=== PATIENT | female | born 1950 | race Caucasian/White ===

== ENCOUNTER → 2022-08-24 08:01 | Outpatient (BNVA) | payer MEDICARE, SELFPAY | PROVIDERS: Visit Provider Internal Medicine | DX: E04.2 Nontoxic multinodular goiter (principal) | CPT/HCPCS: 99202 ==

== ENCOUNTER 2022-08-24 09:24 | Outpatient (REF) | payer MEDICARE, SELFPAY ==
[2022-08-24 11:37] LABS: Free T4 (Free Thyroxine) 1.07 ng/dL (0.71-1.85)
== END 2022-08-24 09:25 | disposition home or self-care (01) ==
LOC: HO.10HDL 09:24
PROVIDERS: Visit Provider Internal Medicine
DX: E04.2 Nontoxic multinodular goiter (principal)
CPT/HCPCS: 36415; 84439; 84443

== ENCOUNTER 2022-10-01 07:57 | Outpatient (REF) | payer MEDICARE, SELFPAY ==
--- NOTE | 2022-10-01 08:51 | PM.OP ---
Brief Operative Note Date of Service: 10/01/22 Pre-op diagnosis: Multinodular Thyroid Procedure: This is doctor Beatrice Valdes. This is an ultrasound-guided fine-needle aspiration report. Indication: Multinodular Thyroid Porcedure: Procedure was explained to the patient. Alternatives, the risk and benefits were discussed. Written consent was obtained. A time-out was also obtained. After sterile preparation, 1 ml of 1% lidocaine solution was applied subcutaneously for anesthetic effect. Then Fine-needle aspiration of a left upper pole 1.1 cm thyroid nodule was performed using direct ultrasound guidance to confirm accurate needle placement. Four aspirations were made using 27 gauge needles. An additional two aspirations were made using 25 guage needles. Samples were submitted for cytology. One pass was dedicated for [employer] sequencing sewing demonstrator testing. Our attention was then turned to the left mid pole. Fine-needle aspiration of a left mid pole 2.1 cm thyroid nodule was performed using direct ultrasound guidance to confirm accurate needle placement. Four aspirations were made using 27 gauge needles. Samples were submitted for cytology. One pass was dedicated for [employer] sequencing sewing demonstrator testing. The patient tolerated the procedure well. Aftercare instructions were provided. Impression: Uncomplicated fine needle aspiration biopsy of a left upper pole 1.1 cm thyroid nodule and a left mid pole 2.1 cm thyroid nodule under ultrasound guidance. Surgeon: Beatrice Valdes, DO Was an [employer] Teacher used for this Procedure?: No Estimated blood loss (mL): 0
[2022-10-01] MEDS: Lidocaine HCl 1 % MPF 5 ML VIAL SUBCUT (09:56)
== END 2022-10-01 07:58 | disposition home or self-care (01) ==
LOC: HO.US 07:57
PROVIDERS: Visit Provider Internal Medicine
DX: E04.2 Nontoxic multinodular goiter (principal)
CPT/HCPCS: 10005; 10006; 88172; 88173; 88177; 88305

== ENCOUNTER 2023-01-04 09:45 | Outpatient (AMB) | payer MEDICARE, SELFPAY ==
--- NOTE | 2023-01-04 09:46 | A.OFFVIS_ITS ---
Intake Intake Visit Reasons: FNA Results Intake Note: FNA results follow up visit. 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 She was diagnosed with a multinodular thyroid in [address] revealed an incidental finding of a thyroid nodule. Subsequent US of the neck done at an outside center revealed multiple nodules within the left lobe of the thyroid (specifically a left upper pole 1.1 cm, left mid pole 2.1 cm and left lower pole 1.2 cm thyroid nodule). She was subsequently referred to Endocrinology. She does report a history of radiation therapy to the chest for a history of breast cancer. She denies any compressive symptoms such as dysphagia or hoarseness of voice. She does report fatigue but denies any other symptoms of hyper or hypothyroidism. She denies any family history of thyroid cancer. Labs: 03/31/2022 TSH = 2.42 PFSH Medical History Multinodular thyroid Surgical History History of glossectomy Hx of mastectomy Family History Mother Hyperthyroidism Father Heart disease Social History Alcohol intake: current Alcohol intake frequency: a few times a week Alcohol type: wine Patient Tobacco Use Status: Never used Tobacco Assessment & Plan Assessment & Plan (1) Multinodular thyroid: Code(s): E04.2 - Nontoxic multinodular goiter Plan: Patient with a multinodular thyroid. She does have a history of radiation to the chest wall and there may have been some scatter to the neck. She underwent 10/01/2022 FNA biopsy of her LUP 1.1 cm thyroid nodule and her LMP 2.1 cm thyroid nodules. LMP 2.1 cm thyroid nodule cytology was benign, but unfortunately her LUP 1.1 cm thyroid nodule was nondiagnostic. She has opted to repeat FNA biopsy of this and this is scheduled for late December. She will F/U thereafter to review the results. All of her questions were answered. She is in agreement with this plan of care. I spent 20 minutes in reviewing the record, seeing the patient and documenting in the medical record, including 5 minutes on the phone with the Patient. Telehealth Telehealth Location of provider rendering services: practice address Location of patient: address on file Patient Identification confirmed using: Name, : Yes Telehealth method: voice only Patient verbally consented to treatment: Yes Patient verbally consented to billing insurance company: Yes Patient informed of any privacy concerns related to visit: Yes Coding Level of Care Code Tele Est Pt Level 3 (64288) Diagnoses Multinodular thyroid E04.2
== END 2023-01-04 13:02 | disposition home or self-care (01) ==
LOC: HO.ENCR 09:45
PROVIDERS: Visit Provider Internal Medicine
DX: E04.2 Nontoxic multinodular goiter (principal)
CPT/HCPCS: 99443

== ENCOUNTER → 2023-01-04 09:45 | Outpatient (BNVA) | payer MEDICARE, SELFPAY | PROVIDERS: Visit Provider Internal Medicine ==